=== PATIENT | female | born 1960 | race Caucasian/White ===

== ENCOUNTER 2018-05-02 14:24 | Emergency (ER) | payer BC ==
[~2018-05-02] VITALS: Ht 157.5 cm; Wt 56.7 kg
[~2018-05-02 14:24] MED LIST: CYCLOBENZAPRINE10 MG ORAL; NAPROXEN SODIU550 M1 ORAL; PERCOCET 5-3251 EACH ORAL
--- NOTE | 2018-05-02 14:57 | Emergency Room Report ---
History of Present Illness General Chief Complaint: Pain Source: Patient (Jeremy Monae) Present Illness HPI 58-year-old female patient presents ER complaining of crampy pain in her right lower extremity. Reports pain is in her ankle pain moves to her foot. Reports pain moves from her right side to her left side. Reports symptoms of present immediately for years. Reports no history of injury. Reports no history of imaging in the past. reports history of being very active, states she isn't equestrian, works out continuously. Reports pain on days that she does not workout. Reports was seen by her doctor at [facility] 2 days ago who prescribed her ibuprofen, states did not help pain symptoms. Reports history of anxiety, reports she has many stressors at home. Reports using COPD patch provided by her son to help relieve symptoms, did not help symptoms. Denies fever, chest pain, shortness of breath. Denies history of DVT or PE. reports able to ambulate. Denies pain in back. Denies pain radiating from back to feet. denies bowel or bladder symptoms. (Jeremy Monae) Allergies: Coded Allergies: CODEINE (Unverified Allergy, Unknown, 11/20/17) DIPHENHYDRAMINE (Unverified Allergy, Unknown, 11/20/17) TRIAMCINOLONE (Unverified Allergy, Unknown, 11/20/17) Patient History Past Medical History: see triage record Last Menstrual Period: 2 yrs Reviewed Nursing Documentation: PMH: Agreed; PSxH: Agreed (Jeremy Monae) Review of Systems All Other Systems: negative except mentioned in HPI (Jeremy Monae) Physical Exam Vital Signs Date Time Temp Pulse Resp B/P (MAP) Pulse Ox O2 Delivery O2 Flow Rate FiO2 05/02/18 14:28 97.9 78 18 98 Room Air 97.9 Sp02 EP Interpretation: reviewed, normal General Appearance: well appearing, no apparent distress, alert, GCS 15, non- toxic Head: normocephalic, atraumatic Eyes: bilateral eye normal inspection, bilateral eye PERRL ENT: hearing grossly normal, normal pharynx, no angioedema, normal voice, uvula midline, moist mucus membranes Respiratory: lungs clear, normal breath sounds, no rhonchi, no respiratory distress, no accessory muscle use, no wheezing, speaking full sentences Cardiovascular #1: regular rate, rhythm, no edema Cardiovascular #2: 2+ dorsalis pedis (R), 2+ dorsalis pedis (L) Musculoskeletal: back normal, digits/nails normal, gait/station normal, normal range of motion, non-tender, no calf tenderness, Fredy's Sign negative, other - NVI, erythema or edema, no crepitus, no podagra, no tophi, Refill less than 2 seconds in all digits bilateral. Neurologic: alert, oriented x3, responsive, motor strength/tone normal, SLR negative, sensory intact Skin: no rash (Jeremy Monae) Medical Decision Making PA Attestation Dr. Barillas is my supervising Physician whom patient management has been discussed with. (Jeremy Monae) Diagnostic Impression: Primary Impression: Muscle cramps ER Course Pt. presents to the ED c/o bilateral lower extremity pain. Ddx considered but are not limited to fracture, sprain, strain, contusion, dislocation, cramps. No erythema, no warmth to touch, no fever, nontoxic appearing, low suspicion for septic joint. Homans sign negative, no unilateral, No Erythema or Edema, Low Suspicion for DVT or PE. No erythema, no warmth to touch, no podagra, low suspicion for gout. patient denies history of arterial disease or heart disease, no varicose veins, no skin changes, low suspicion for vascular disease. No abdominal pain, no urinary symptoms, no hx of statins, low suspicion for rhabdo. Vital signs: are WNL, pt. is afebrile Ordered X-ray and medication. ER COURSE Provided with pain medication, Robaxin. CURES reviewed. patient indicating pain in posterior malleolus right ankle. due to no history of imaging an indication of pain, will order x-rays. Physical exam benign, no swelling or erythema, no deformity, no TTP with distraction. patient reports feeling anxious requesting medication for treatment of anxiety. Will provide patient with Ativan in ER. Patient reports normally takes Klonopin at night as prescribed by PCP. patient requested prescription for Ativan, instructed patient to follow-up with primary care provider or mental health professional discuss further treatment and management of symptoms. Provided with contact information for mental health urgent care if unable to be seen by PCP. Do not believe patient is danger to herself or others. An X-ray of the Right ankle shows no acute disease per the preliminary reading. An X-ray of the Left ankle shows no acute disease per the preliminary reading. Discussed results with patient. Symptoms likely related to stress and exercise, likely muscle cramps and spasms. avoid stressors. Follow-up with mental health professional or PCP. patient reports symptoms improved following administration of Ativan. reports able to move toes and ankles without pain at this time. Drink plenty of fluids. perform stretching exercises. patient able ambulate independently, observed walking without limp and ER, does not require crutches. Patient instructed on RICE method: rest, ice, compression, elevation. Patient instructed on rest, ice and heat. Patient instructed to be WBAT Followup with primary care provider. Discuss referral to ortho/pain management/ PT as needed. Discuss further imaging with MRI/CT as needed. patient partner reported to ER, will discharge patient to his care. DISCHARGE: -Rx provided for Tylenol for pain symptoms. -Rx provided for Methocarbamol. SE drowsiness, do not drink, drive, or operate heavy machinery while using. At this time pt. is stable for d/c to home. Patient is resting comfortably, in no acute distress, nontoxic appearing, talking without difficulty. Will provide printed patient care instructions, and any necessary prescriptions. Patient instructed to follow with primary care provider in 3 - 5 days and to request further follow-up as needed. Care plan and follow up instructions have been discussed with the patient prior to discharge. Take medications as directed. Patient questions asked and answered. Patient reports understanding and agreement to treatment plan. ER precautions given, patient instructed to return to ER immediately for any new or worsening of symptoms. - Please note that this Emergency Department Report was dictated using [employer] professional technology software, occasionally this can lead to erroneous entry secondary to interpretation by the dictation equipment. (Jeremy Monae) Other X-Ray Diagnostic Results Other X-Ray Diagnostic Results #1: X-Ray ordered: right ankle # of Views/Limited Vs Complete: 3 View Indication: Pain EP Interpretation: Yes PA Xray: Interpretation reviewed, by supervising MD, and agrees with findings. Interpretation: no dislocation, no soft tissue swelling, no fractures Impression: No acute disease PA Scribe Text Joshua Monae PA-C Other X-Ray Diagnostic Results #2: X-Ray ordered: left ankle # of Views/Limited Vs Complete: 3 View Indication: Pain EP Interpretation: Yes PA Xray: Interpretation reviewed, by supervising MD, and agrees with findings. Interpretation: no dislocation, no soft tissue swelling, no fractures Impression: No acute disease PA Scribe Text Joshua Monae PA-C (Jeremy Monae) Other X-Ray Diagnostic Results #1: Electronically Signed by: Scribe documentation reviewed by me and is accurate, Shaun Barillas MD. Other X-Ray Diagnostic Results #2: Electronically Signed by: Scribe documentation reviewed by me and is accurate, Shaun Barillas MD. (Shaun Barillas M.D.) Last Vital Signs Date Time Temp Pulse Resp B/P (MAP) Pulse Ox O2 Delivery O2 Flow Rate FiO2 05/02/18 14:28 97.9 78 18 98 Room Air 97.9 Status: improved (Jeremy Monae) Disposition: HOME, SELF-CARE Condition: Stable Scripts Acetaminophen* (TYLENOL EXTRA STRENGTH*) 500 Mg Tablet 500 MG ORAL Q8H PRN for Prn Headache/Temp > 101, #30 TAB 0 Refills Prov: Jeremy Monae.A. 05/02/18 Methocarbamol* (ROBAXIN*) 500 Mg Tablet 500 MG PO TID, #21 TAB 0 Refills Prov: Jeremy Monae.A. 05/02/18 Referrals: NON PHYSICIAN (PCP) Patient Instructions: Leg Cramps, Muscle Cramps and Spasms, [id number] Additional Instructions: Patient instructed to follow up with primary care provider and discuss further referral to orthopedics, vascular specialist, physical therapist and pain management as needed. Patient instructed on RICE method: rest, ice, compression, elevation. Patient instructed to WBAT. Take medications as directed. side effect drowsiness, do not take prior to drinking driving or operating machinery. Avoid stressors, follow-up with mental health professional to discuss management. Patient questions asked and answered. Drink plenty of fluids. Perform stretching and ROM exercises. ER precautions given, patient instructed to return to ER immediately for any new or worsening of symptoms. Jeremy Monae May 02, 2018 14:57 Shaun Barillas M.D. May 03, 2018 00:59
[2018-05-02] MEDS ORDERED: Methocarbamol 500mg tab ORAL ONE (15:00)
[2018-05-02] MEDS ORDERED: Ketorolac 60mg Inj IM ONE (15:00)
[2018-05-02] MEDS ORDERED: TYLENOL EXTRA500 MG ORAL (15:03)
[2018-05-02] MEDS ORDERED: ROBAXIN500 MG PO (15:03)
[2018-05-02] MEDS ORDERED: LORazepam Inj 2mg/ml 1ml IM ONE (15:15)
[2018-05-02 16:50] VITALS: BP 98/69
--- NOTE | 2018-05-03 10:22 | Diagnostic Imaging Report ---
Indication: Pain Technique: 3 views of the left ankle Comparison: None; Comparison made to concurrent right ankle radiographs. Findings: No acute fracture. Ankle mortise is intact on these nonstress views. Partially imaged left foot grossly unremarkable. No radiopaque foreign body identified. No ankle joint effusion. IMPRESSION: No acute bony or articular abnormality.
--- NOTE | 2018-05-03 10:23 | Diagnostic Imaging Report ---
Indication: Pain Technique: 3 views of the right ankle. Comparison: None; Comparison made to concurrent left ankle radiographs. Findings: No acute fracture. Ankle mortise is intact on these nonstress views. Partially imaged foot grossly unremarkable. There is a small Achilles tendon enthesophyte. No radiopaque foreign body identified. No ankle joint effusion. IMPRESSION: No acute bony or articular abnormality. Small Achilles tendon enthesophyte.
== END 2018-05-02 16:50 | disposition home or self-care (01) ==
LOC: EMR 14:41
DX: R25.2 Cramp and spasm (principal); M79.605 Pain in left leg; M79.604 Pain in right leg; Z88.5 Allergy status to narcotic agent; Z88.8 Allergy status to other drugs, medicaments and biological substances
CPT/HCPCS: 96372; 99284

== ENCOUNTER 2019-09-19 11:09 | Emergency (ER) | payer BC ==
[~2019-09-19] VITALS: Ht 157.5 cm; Wt 54.4 kg
[~2019-09-19 11:09] MED LIST changes: +ROBAXIN500 MG PO; +TYLENOL EXTRA500 MG ORAL
[2019-09-19 11:30] VITALS: BP 110/75
--- NOTE | 2019-09-19 11:30 | NUR ---
ED Nurse Note: Patient arrived from home complaining of dizziness, headache, and nausea since 5am. Patient states headache is 10/10. No episodes of vomiting, denies diarrhea. Patient has had vertigo before, unsure of time but states it was years ago. Patient AxO x 4, VSS. Patient on the surveillance system monitor, bed in lowest position. Partner at bedside.
[2019-09-19] MEDS ORDERED: Meclizine 25mg tab ORAL ONE (12:15)
--- NOTE | 2019-09-19 12:17 | Emergency Room Report ---
History of Present Illness General Chief Complaint: Headache Source: Patient Present Illness HPI Patient is a 59-year-old female presents after increased headache and vertigo sensation. She reports of increased vertigo worse with head movement. She states this is worse with movement to the right. Onset last night. Associated nausea and vomiting. Denies any weakness. Had prior history of minor head injuries in the past. She reports taking benzodiazepines as well as medication for chronic constipation. Denies any fever. Allergies: Coded Allergies: CODEINE (Unverified Allergy, Unknown, 11/20/17) DIPHENHYDRAMINE (Unverified Allergy, Unknown, 11/20/17) MEPERIDINE (Verified Allergy, Unknown, 09/19/19) TRIAMCINOLONE (Unverified Allergy, Unknown, 11/20/17) Patient History Past Medical History: see triage record Now: No Reviewed Nursing Documentation: PMH: Agreed; PSxH: Agreed Nursing Documentation-PMH Past Medical History: No History, Except For History Of Psychiatric Problem: Yes - Anxiety Review of Systems All Other Systems: negative except mentioned in HPI Physical Exam Vital Signs Date Time Temp Pulse Resp B/P (MAP) Pulse Ox O2 Delivery O2 Flow Rate FiO2 09/19/19 11:19 98.4 63 20 108/75 (86) 100 Room Air Sp02 EP Interpretation: reviewed, normal General Appearance: normal inspection, well appearing, no apparent distress, alert, GCS 15 Head: atraumatic ENT: normal ENT inspection, hearing grossly normal, normal voice Neck: normal inspection, full range of motion, supple, no bony tend Respiratory: normal inspection, lungs clear, normal breath sounds, no respiratory distress, no retraction, no wheezing Cardiovascular #1: regular rate, rhythm, no edema Gastrointestinal: normal inspection, normal bowel sounds, non tender, soft, no guarding, no hernia Genitourinary: no CVA tenderness Musculoskeletal: normal inspection, back normal, normal range of motion Neurologic: normal inspection, alert, oriented x3, responsive, business reporting developer III-XII nml as tested, speech normal Psychiatric: normal inspection, judgement/insight normal, mood/affect normal Medical Decision Making ER Course Patient presented for headache and vertigo. Differential diagnosis include was not limited to peripheral vertigo, hyponatremia, migraine headache, Labyrinthitis. Because of complexity of patient's case laboratory tests and imaging studies were ordered.Patient appears to have a normal neurologic exam. She does report having some nystagmus with right-sided eye movements.Patient has normal [id number] and has normal [id number] exam.Patient does not appear to have any acute neurologic deficit however given the patient's acute headache imaging studies were ordered. Last Vital Signs Date Time Temp Pulse Resp B/P (MAP) Pulse Ox O2 Delivery O2 Flow Rate FiO2 09/19/19 11:19 98.4 63 20 108/75 (86) 100 Room Air Referrals: NON PHYSICIAN (PCP) Kenneth Gabriel MD Sep 19, 2019 12:17
--- NOTE | 2019-09-19 12:35 | NUR ---
ED Nurse Note: per pt, "I like to take my ativan, I feel anxious." RN confirmed with Dr. Gabriel that it is ok to take. Pt took 0.5mg of ativan orally.
--- NOTE | 2019-09-19 12:50 | NUR ---
ED Nurse Note: pt refused to take antivert bc she does not feel dizziness anymore. pt c/o headache and wants some pain meds. 08/08. Dr. Gabriel notified.
[2019-09-19 13:10] LABS: BASOPHILS % (AUTO) 0.9 % (0.0-2.0); EOSINOPHILS % (AUTO) 2.1 % (0.0-3.0); HEMOGLOBIN 13.3 G/DL (12.0-16.0); MEAN CORPUSCULAR VOLUME 85 FL (80-99); MONOCYTES % (AUTO) 4.8 % (1.0-10.0); NEUTROPHILS % (AUTO) 68.1 % (45.0-75.0); PLATELET COUNT 201 K/UL (150-450); RED BLOOD COUNT 4.72 M/UL (4.20-5.40); RED CELL DISTRIBUTION WIDTH 11.7 % (11.6-14.8); WHITE BLOOD COUNT 6.6 K/UL (4.8-10.8)
[2019-09-19 13:11] LABS: ANION GAP 7 mmol/L (5-15); BLOOD UREA NITROGEN 13 mg/dL (7-18); CALCIUM 9.1 MG/DL (8.5-10.1); CARBON DIOXIDE 28 MMOL/L (21-32); CHLORIDE 106 MMOL/L (98-107); CREATININE 0.7 MG/DL (0.55-1.30); POTASSIUM 4.1 MMOL/L (3.5-5.1); SODIUM 141 MMOL/L (136-145)
[2019-09-19] MEDS ORDERED: Acetaminophen 500mg (ES) tab ORAL ONE (13:15)
[2019-09-19 13:16] LABS: ALANINE AMINOTRANSFERASE 40 U/L (12-78); ALBUMIN/GLOBULIN RATIO 1.2 (1.0-2.7); ALKALINE PHOSPHATASE 48 U/L (46-116); ASPARTATE AMINO TRANSFERASE 19 U/L (15-37); BILIRUBIN,TOTAL 0.5 MG/DL (0.2-1.0); INR 0.9 (0.9-1.1)
[2019-09-19 13:20] VITALS: BP 112/74
--- NOTE | 2019-09-19 13:30 | Diagnostic Imaging Report ---
Indication: Headache Technique: Contiguous 5 mm thick transaxial imaging of the head obtained in a Siemens Sensation [address] scanner. Soft tissue and bone windows generated. Automatic Exposure Control was utilized. Total Dose length Product (DLP): 1426.[address] Dose Index Volume (CTDIvol): 62.7 mGy Comparison: none Findings: The size and configuration of the cortical sulci, basal cisterns, and ventricles are within normal limits for age. There is no mass effect, midline shift, or edema identified. There is no evidence of acute hemorrhage or abnormal intra-axial or extra-axial fluid collections. The bones and soft tissues are unremarkable. Impression: No mass effect, edema or acute bleed. The CT scanner at [facility] is accredited by the [employer] and the scans are performed using dose optimization techniques as appropriate to a performed exam including Automatic Exposure control.
[2019-09-19] MEDS ORDERED: MECLIZINE HCL25 MG ORAL (13:57)
[2019-09-19] MEDS ORDERED: ONDANSETRON ODT4 MG BC (14:09)
--- NOTE | 2019-09-19 14:45 | NUR ---
ED Nurse Note: Patient cleared to leave by MD. AYOUB and name band removed. Patient states headache is less severe and her diziness is much better. Patient has all belongings.
[2019-09-19 14:54] VITALS: BP 112/72
== END 2019-09-19 14:54 | disposition home or self-care (01) ==
LOC: EMR 11:42
DX: R42 Dizziness and giddiness (principal); R51 Headache; R11.2 Nausea with vomiting, unspecified; Z88.6 Allergy status to analgesic agent; F41.9 Anxiety disorder, unspecified
CPT/HCPCS: 36415; 70450; 80053; 85025; 85610; 85730; 96374; 99284; J2405; J7040